=== PATIENT | male | born 1955 | race Caucasian/White ===

== ENCOUNTER 2018-10-15 12:56 | Emergency (ER) | payer BC ==
[2018-10-15] MEDS ORDERED: DILTIAZEM 25 MG INJ (13:26)
[2018-10-15] MEDS: DILTIAZEM 25 MG INJ IV ×2 (13:30→14:47)
[2018-10-15 13:51] LABS: ADD MAN DIFF? NO
[2018-10-15 13:58] LABS: WHITE BLOOD COUNT 10.4 10^3/ul (4.8-10.8)
[2018-10-15 13:58] LABS: ABNORMAL IP MESSAGE 1; BASOPHILS % 0.2 % (0.0-2.0); HEMATOCRIT 44.6 % (42.0-52.0); HEMOGLOBIN 15.8 g/dl (14.0-18.0); LYMPHOCYTES # 0.6 10^3/ul (0.8-2.9); LYMPHOCYTES % 5.3 % (15.0-51.0); MEAN CORPUSCULAR HEMOGLOBIN 33.5 pg (29.0-33.0); MEAN CORPUSCULAR HGB CONC 35.4 g/dl (32.0-37.0); MEAN CORPUSCULAR VOLUME 94.5 fl (82.0-101.0); MEAN PLATELET VOLUME 10.3 fl (7.4-10.4); MONOCYTE # 0.2 10^3/ul (0.3-0.9); NEUTROPHIL # 9.5 10^3/ul (1.6-7.5); NEUTROPHILS % 91.8 % (39.0-77.0); PLATELET COUNT 203 10^3/UL (140-415); POSITIVE DIFF @See below; RED BLOOD COUNT 4.72 10^6/ul (4.70-6.10); RED CELL DISTRIBUTION WIDTH 13.2 % (11.5-14.5)
[2018-10-15 14:13] LABS: ANION GAP 9 (5-13); BLOOD UREA NITROGEN 21 mg/dl (7-20); CALCIUM 9.5 mg/dl (8.4-10.2); CARBON DIOXIDE 25 mmol/L (21-31); CHLORIDE 107 mmol/L (97-110); CREATININE 1.01 mg/dl (0.61-1.24); Estimated GFR > 60 mL/min (>60); GLUCOSE 142 mg/dl (70-220); SODIUM 141 mmol/L (135-144)
[2018-10-15 14:16] LABS: POTASSIUM 5.5 mmol/L (3.5-5.1)
[2018-10-15 14:25] LABS: TROPONIN-I < 0.012 ng/ml (0.000-0.120)
[2018-10-15] MEDS: DILTIAZEM-D5W 125MG/125ML DRIP 125 ML IV (14:25)
[2018-10-15] MEDS ORDERED: ACETAMINOPHEN 325 MG TAB PO (15:00)
[2018-10-15] MEDS ORDERED: ONDANSETRON 4 MG INJ IV (15:00)
[2018-10-15] MEDS: ONDANSETRON 4 MG INJ IV (18:15)
[2018-10-15] MEDS: morphine 4 MG/ML VIAL IV (18:16)
== END 2018-10-15 19:50 | disposition short-term general hospital (02) ==
LOC: E/R 19:50
DX: I48.91 Unspecified atrial fibrillation (principal)
CPT/HCPCS: 71045; 80048; 84484; 85025; 93005; 96374; 96375; 96376; 99291-25

== ENCOUNTER 2018-12-26 05:23 | Day surgery (SDC) | payer BC ==
[2018-12-26] MEDS ORDERED: PROPOFOL 20 ML (07:06)
[2018-12-26] MEDS ORDERED: LIDOCAINE 2% (SDV) 5 ML INJ (07:06)
[2018-12-26] MEDS ORDERED: MIDAZOLAM 1 MG/ML 2 ML INJ (07:06)
[2018-12-26] MEDS ORDERED: FENTAnyl 50 MCG/ML VIAL (07:06)
[2018-12-26] MEDS ORDERED: OXYCODONE/ACETAMINOPHEN (5/325) TAB PO (08:00)
[2018-12-26] MEDS ORDERED: MIDAZOLAM 1 MG/ML 2 ML INJ IV (08:00)
[2018-12-26] MEDS ORDERED: FENTAnyl 50 MCG/ML VIAL IV ×3 (08:00)
[2018-12-26] MEDS ORDERED: ONDANSETRON 4 MG INJ IV (08:00)
[2018-12-26] MEDS ORDERED: ONDANSETRON 4 MG INJ (08:10)
[2018-12-26] MEDS: LIDOCAINE 1% (MPF) 30 ML INJ (08:13)
[2018-12-26] MEDS: BUPIVACAINE 0.25% (MPF) 30 ML INJ (08:13)
[2018-12-26] MEDS: IOHEXOL 300MG/ML 30 ML BTL (08:13)
[2018-12-26] MEDS ORDERED: DEXAMETHASONE 10 MG/ML 1 ML INJ IV (09:00)
[2018-12-26] MEDS: OXYCODONE/ACETAMINOPHEN (5/325) TAB PO (09:43)
== END 2018-12-26 10:20 | disposition home or self-care (01) ==
LOC: SDS 05:23
DX: M54.16 Radiculopathy, lumbar region (principal); I48.91 Unspecified atrial fibrillation; E03.9 Hypothyroidism, unspecified
CPT/HCPCS: 64483; 72100; 93005

== ENCOUNTER 2019-01-22 05:22 | Day surgery (SDC) | payer BC ==
[2019-01-22 06:25] LABS: ADD MAN DIFF? NO
[2019-01-22 06:27] LABS: BASOPHILS % 0.6 % (0.0-2.0); EOSINOPHILS # 0.1 10^3/ul (0.0-0.5); EOSINOPHILS % 2.6 % (0.0-7.0); HEMATOCRIT 40.2 % (42.0-52.0); HEMOGLOBIN 14.2 g/dl (14.0-18.0); LYMPHOCYTES # 1.1 10^3/ul (0.8-2.9); LYMPHOCYTES % 21.1 % (15.0-51.0); MEAN CORPUSCULAR HEMOGLOBIN 32.5 pg (29.0-33.0); MEAN CORPUSCULAR HGB CONC 35.3 g/dl (32.0-37.0); MONOCYTE # 0.7 10^3/ul (0.3-0.9); MONOCYTES % 12.8 % (0.0-11.0); NEUTROPHIL # 3.3 10^3/ul (1.6-7.5); NEUTROPHILS % 62.5 % (39.0-77.0); PLATELET COUNT 181 10^3/UL (140-415); RED BLOOD COUNT 4.37 10^6/ul (4.70-6.10); RED CELL DISTRIBUTION WIDTH 12.5 % (11.5-14.5)
[2019-01-22 06:27] LABS: WHITE BLOOD COUNT 5.3 10^3/ul (4.8-10.8)
[2019-01-22 06:47] LABS: INR 0.97; PARTIAL THROMBOPLASTIN TIME 33.3 Sec (23.0-35.0)
[2019-01-22 06:50] LABS: ANION GAP 8 (5-13); CALCIUM 9.7 mg/dl (8.4-10.2); CARBON DIOXIDE 31 mmol/L (21-31); CHLORIDE 104 mmol/L (97-110); CREATININE 1.12 mg/dl (0.61-1.24); Estimated GFR > 60 mL/min (>60); GLUCOSE 115 mg/dl (70-220); SODIUM 143 mmol/L (135-144)
[2019-01-22 07:02] LABS: BLOOD UREA NITROGEN 26 mg/dl (7-20); POTASSIUM 5.4 mmol/L (3.5-5.1)
[2019-01-22] MEDS ORDERED: ROPIVACAINE 0.5 % 30 ML VIAL (07:36)
[2019-01-22] MEDS ORDERED: FENTAnyl 50 MCG/ML VIAL ×2 (07:37→08:40)
[2019-01-22] MEDS ORDERED: SODIUM CL BACTERIOSTATIC 30 ML INJ (07:37)
[2019-01-22] MEDS ORDERED: PROPOFOL 20 ML (07:38)
[2019-01-22] MEDS: IOHEXOL 300MG/ML 30 ML BTL (08:20)
[2019-01-22] MEDS: LIDOCAINE 1% (MPF) 30 ML INJ (08:23)
[2019-01-22] MEDS: BUPIVACAINE 0.25% (MPF) 30 ML INJ (08:23)
[2019-01-22] MEDS: TRIAMCINOLONE ACET 40 MG/ML INJ (08:23)
[2019-01-22] MEDS: BETAMET NA PHOS/AC(6 MG/ML) 5ML INJ (08:23)
[2019-01-22] MEDS ORDERED: LIDOCAINE 2% (SDV) 5 ML INJ (08:30)
[2019-01-22] MEDS ORDERED: KETOROLAC 30 MG INJ (08:50)
[2019-01-22] MEDS: KETOROLAC 30 MG INJ IM (08:55)
[2019-01-22] MEDS ORDERED: LABETALOL HCL 20MG INJ IV (09:00)
[2019-01-22] MEDS: FENTAnyl 50 MCG/ML VIAL IV ×4 (09:00→09:29)
[2019-01-22] MEDS ORDERED: FENTAnyl 50 MCG/ML VIAL IV (09:00)
[2019-01-22] MEDS ORDERED: DIPHENHYDRAMINE 50 MG INJ IV (09:00)
[2019-01-22] MEDS ORDERED: KETOROLAC 30 MG INJ IV (09:00)
[2019-01-22] MEDS ORDERED: MIDAZOLAM 1 MG/ML 2 ML INJ IV (09:00)
[2019-01-22] MEDS ORDERED: MEPERIDINE 25 MG INJ IV (09:00)
[2019-01-22] MEDS ORDERED: OXYCODONE/ACETAMINOPHEN (5/325) TAB PO (09:00)
[2019-01-22] MEDS ORDERED: EPHEDrine 25 MG/5 ML SYG IV (09:00)
[2019-01-22] MEDS ORDERED: hydrALAzine 20 MG INJ IV (09:00)
[2019-01-22] MEDS: OXYCODONE/ACETAMINOPHEN (5/325) TAB PO (09:14)
== END 2019-01-22 10:45 | disposition home or self-care (01) ==
LOC: SDS 05:22
DX: M54.16 Radiculopathy, lumbar region (principal); M46.1 Sacroiliitis, not elsewhere classified
CPT/HCPCS: 27096; 71045; 76000; 80048; 85025; 85610; 85730; 93005